=== PATIENT | female | born 1970 | race Caucasian/White ===

== ENCOUNTER 2023-11-13 08:04 | Outpatient (OUT) | payer BC, SELFPAY ==
--- NOTE | 2023-11-13 08:06 | MM_ITS ---
Patient Name: LEONARD GONZALES MR#: [id number] : 1970 Exam Date: 11/13/2023 Ordering Doctor: DR Genie Lopez M.D. RADIOLOGY REPORT PROCEDURE: MM TOMOSYNTHESIS SCREENING BI COMPARISON: MG MAMM SCREEN 3D BISMARK CAD, 01/04/2021. INDICATIONS: Screening Calculator Name NCI Breast Cancer Risk Assessment Tool 5 Year Breast Cancer Risk Not Reported. Lifetime Breast Cancer Risk Not Reported. Personal Breast Cancer No Personal Ovarian Cancer No Treatments None Family Cancers None LOCATION: [facility] BREAST COMPOSITION: Almost entirely fatty. FINDINGS: DIAGNOSTIC CATEGORY 2--BENIGN FINDING. NO CHANGE FROM COMPARISON. Scattered benign-appearing nodules are present. Scattered benign-appearing calcifications are present. Scattered benign-appearing lymph nodes are present. RIGHT BREAST: No significant suspicious finding. LEFT BREAST: No significant suspicious finding. RECOMMENDATIONS: ROUTINE MAMMOGRAM AND CLINICAL EVALUATION IN 12 MONTHS. PLEASE NOTE: A NORMAL MAMMOGRAM DOES NOT EXCLUDE THE POSSIBILITY OF BREAST CANCER. A CLINICALLY SUSPICIOUS PALPABLE LUMP SHOULD BE BIOPSIED. Dictated by: Ike Mendez MD on 11/13/2023 at 09:14 Approved by: Ike Mendez MD on 11/13/2023 at 09:16
== END 2023-11-13 08:05 | disposition home or self-care (01) ==
LOC: MAMMO 08:04
PROVIDERS: PCP Family Medicine; Visit Provider Family Medicine
DX: Z12.31 Encounter for screening mammogram for malignant neoplasm of breast (principal)
CPT/HCPCS: 77063; 77067

== ENCOUNTER 2024-12-23 09:56 | Outpatient (OUT) | payer BC, SELFPAY ==
--- NOTE | 2024-12-23 09:59 | MM_ITS ---
Patient Name: LEONARD GONZALES MR#: [id number] : 1970 Exam Date: 12/23/2024 Ordering Doctor: DR. ISABELLE MART D.O. RADIOLOGY REPORT PROCEDURE: MM TOMOSYNTHESIS SCREENING BI COMPARISON: MM TOMOSYNTHESIS SCREENING BI, 11/13/2023. MG MAMM SCREEN 3D BISMARK CAD, 01/04/2021. INDICATIONS: Screening Calculator Name NCI Breast Cancer Risk Assessment Tool 5 Year Breast Cancer Risk Not Reported. Lifetime Breast Cancer Risk Not Reported. Personal Breast Cancer No Personal Ovarian Cancer No Treatments None Family Cancers None LOCATION: [facility] BREAST COMPOSITION: The breasts are almost entirely fatty. FINDINGS: RIGHT BREAST: No significant suspicious finding. LEFT BREAST: No significant suspicious finding. DIAGNOSTIC CATEGORY 1--NEGATIVE. RECOMMENDATIONS: ROUTINE MAMMOGRAM AND CLINICAL EVALUATION IN 12 MONTHS. PLEASE NOTE: A NORMAL MAMMOGRAM DOES NOT EXCLUDE THE POSSIBILITY OF BREAST CANCER. A CLINICALLY SUSPICIOUS PALPABLE LUMP SHOULD BE BIOPSIED. Dictated by: Kvng Whitfield DO on 12/23/2024 at 12:33 Approved by: Kvng Whitfield DO on 12/23/2024 at 12:37
--- OUTSIDE RECORDS SUMMARY | 2024-12-23 10:03 | XMS_ITS | CCD ---
Author Organization [facility] Care Team Providers Care Discovery Manager Name Role Phone DR GENIE MA Admitting Unavailable DR GENIE MA Consulting Unavailable DR GENIE MA Attending Unavailable DEMETRICE MCKEON Admitting Unavailable DEMETRICE MCKEON Consulting Unavailable DEMETRICE MCKEON Attending Unavailable Arron Valdivia Unavailable Jennifer Younger Unavailable Genie Ma Unavailable GENIE MA Primary Care Physician Genie Ma MD Primary Care Provider [phone] ELISABET LARSON Attending Unavailable Elisabet Larson Attending Unavailable Elisabet Larson Admitting Unavailable GENIE MA Attending Unavailable GENIE MA Admitting Unavailable Elisabet Larson Attending Unavailable Elisabet Larson Admitting Unavailable Allergies Allergy Classification Reported Allergen(s) Allergy Type Date of Onset Reaction(s) Facility (1 source) patient allergy list reviewed by nurse or physicia Propensity to adverse reactions 4 Comment:Done Genterpret Other (1 source) Allergies Reconciled Propensity to adverse reactions Unknown [facility] Other (3 sources) Amoxicillin Drug Allergy 5 GI intolerance [facility] Medications Current Medications Medication Drug Class(es) Dates Sig (Normalized) Sig (Original) cefdinir 300 mg oral capsule (2 sources) Cephalosporin Antibacterial Start: 02-05-2023 Cefdinir 300 MG as directed Orally bid for 7 days January, Active phentermine hydrochloride 37.5 mg oral tablet (20 sources) Sympathomimetic Amine Anorectic Start: 12-20-2024 take 1 tablet by mouth once daily phentermine (Adipex-P) 37.5 MG tablet Take 37.5 mg by mouth Daily 09/02/2024 Active Start: 11-05-2023 End: 08-02-2024 take 1 tablet by mouth once daily Phentermine 37.5 mg tablet Active 37.5 MG PO Daily August 02, 2024 8:50am FreeTextSi tablet Orally Once a day; Note: Source Status: Taking; Refills: 0; Qty: 30 Tablet; Provider: Jessica Lamb Start: 10-20-2023 take 1 tablet by tessy th every twenty-four hours Adipex-P 37.5 MG 1 tablet Orally Once a day for 30 days Oct, Active Start: 12-26-2022 take 1 tablet by tessy th every twenty-four hours Adipex-P 37.5 MG 1 tablet Orally Once a day for 30 days Dec, Active Start: 11-24-2022 take 1 tablet by tessy th every twenty-four hours Adipex-P 37.5 MG 1 tablet Orally Once a day for 30 days Nov, Active Start: 10-20-2022 take 1 tablet by tessy th every twenty-four hours Adipex-P 37.5 MG 1 tablet Orally Once a day for 30 days Oct, Active Completed/Discontinued Medications Medication Drug Class(es) Dates Sig (Normalized) Sig (Original) amoxicillin 875 mg / clavulanate 125 mg oral tablet (9 sources) Penicillin-class Antibacterial Start: 4 End: take 1 tablet by mouth twice daily Amoxicillin-Pot Clavulanate 875-125 mg tablet Discontinued 1 TAB PO Twice daily November 26, 2023 11:00pm December 18, 2023 7:39am fluconazole 150 mg oral tablet (9 sources) Azole Antifungal Start: 4 End: 4 Fluconazole 150 mg tablet Discontinued 150 MG PO Daily 2 November 26, 2023 11:00pm December 18, 2023 8:01am Take first tablet at the onset of symptoms of a yeast infection, take the second tablet 3 days later. methylPREDNISolone 4 mg oral tablet (9 sources) Corticosteroid Start: 4 End: take 1 tablet by mouth once Methylprednisolone (Medrol (Cedrick)) 4 mg tablets,dose pack Discontinued 0 PO per package directions November 26, 2023 11:00pm December 18, 2023 8:01am PO PER PKG DIR for 6 days Problems Active Problems Problem Classification Problem Date Documented Date Episodic/Chronic Contraceptive and procreative management (2 sources) Intrauterine contraceptive device in situ; Translations: [Encounter for routine checking of intrauterine contraceptive device] 09-21-2024 Episodic Genitourinary symptoms and ill-defined conditions (9 sources) Urinary tract infectious disease; Translations: [Unspecified symptoms and signs involving the genitourinary system] Episodic Immunizations and screening for infectious disease (11 sources) Encounter for immunization; Translations: [Contact with and (suspected) exposure to other viral communicable diseases] Onset: 01-28-2021 Resolved: 10-03-2021 Episodic Inflammation; infection of eye (except that caused by tuberculosis or sexually transmitteddisease) (1 source) Conjunctivitis; Translations: [Unspecified conjunctivitis] Episodic Malaise and fatigue (19 sources) Other fatigue; Translations: [Fatigue] Onset: 01-20-2022 Resolved: 01-20-2022 Episodic Menopausal disorders (2 sources) Vaginal dryness; Translations: [Menopausal and female climacteric states] 09-21-2024 Chronic Mycoses (10 sources) Onychomycosis due to dermatophyte ; Translations: [Tinea unguium] Onset: 02-11-2019 Episodic Other circulatory disease (10 sources) Elevated blood-pressure reading without diagnosis of hypertension; Translations: [Elevated blood-pressure reading, without diagnosis of hypertension] 11-05-2023 Episodic Other infections; including parasitic (4 sources) Personal history of other infectious and parasitic diseases; Translations: [Personal history of other infectious and parasitic diseases] 11-27-2023 Episodic Other nervous system disorders (8 sources) Sensory disorder of smell and/or taste; Translations: [Parageusia] Episodic Other nervous system disorders (1 source) Taste sense altered; Translations: [Parageusia] Episodic Other nervous system disorders (9 sources) Loss of taste; Translations: [Parageusia] 11-05-2023 Episodic Other non-traumatic joint disorders (2 sources) Pain in left knee Episodic Other nutritional; endocrine; and metabolic disorders (12 sources) Body mass index 40+ - severely obese; Translations: [Body mass index (BMI) 45.0-49.9, adult] Onset: 05-14-2016 Chronic Other nutritional; endocrine; and metabolic disorders (20 sources) Severe obesity; Translations: [Morbid (severe) obesity due to excess calories] 11-16-2023 Chronic Other nutritional; endocrine; and metabolic disorders (17 sources) Morbid (severe) obesity due to excess calories; Translations: [Morbid obesity] Chronic Other nutritional; endocrine; and metabolic disorders (4 sources) Body mass index (BMI) 45.0-49.9, adult Chronic Other nutritional; endocrine; and metabolic disorders (1 source) Obesity; Translations: [Obesity, unspecified] Onset: 05-13-2013 Chronic Other nutritional; endocrine; and metabolic disorders (4 sources) Drug-induced obesity; Translations: [Drug-induced obesity] 03-25-2024 Chronic Other nutritional; endocrine; and metabolic disorders (2 sources) Morbid obesity; Translations: [Morbid (severe) obesity due to excess calories] 09-21-2024 Chronic Other screening for suspected conditions (not mental disorders or infectious disease) (9 sources) Encounter for screening mammogram for malignant neoplasm of breast; Translations: [Cancer cervix screening status] Episodic Other upper respiratory infections (5 sources) Chronic sinusitis; Translations: [Chronic sinusitis, unspecified] 11-27-2023 Chronic Other upper respiratory infections (16 sources) Acute pharyngitis, unspecified; Translations: [Pharyngitis] Onset: 09-11-2016 Resolved: 01-20-2022 Episodic Residual codes; unclassified (2 sources) Reduced libido; Translations: [Decreased libido] 09-21-2024 Episodic Residual codes; unclassified (2 sources) Family history of malignant neoplasm of breast in first degree relative; Translations: [Family history of malignant neoplasm of breast] 09-21-2024 Episodic Spondylosis; intervertebral disc disorders; other back problems (1 source) Lumbar radiculopathy; Translations: [Radiculopathy, lumbar region] Episodic Past or Other Problems Problem Classification Problem Date Documented Da te Episodic/Chronic Administrative/social admission (1 source) Repeated prescription; Translations: [Encounter for issue of repeat prescription] Onset: 05-14-2016 Episodic Other connective tissue disease (10 sources) Plantar fascial fibromatosis; Translations: [Plantar fascial fibromatosis] Onset: 01-09-2015 11-05-2023 Episodic Pleurisy; pneumothorax; pulmonary collapse (10 sources) Pleurisy; Translations: [Pleurisy] Onset: 12-14-2018 11-05-2023 Episodic Viral infection (1 source) COVID-19 Onset: 10-03-2021 Resolved: 10-03-2021 Results Test Name Value Interpretation Reference Range Facility Cortisolon 09-27-2024 Cortisol [Mass/Vol] 6.6 microgram/dL Invalid Interpretation Code 6.2-19.4 [facility] Comment on above: Result Comment: Plea se Note: The reference interval and flagging for this test is for an AM collection. If this is a PM collection please use: Cortisol PM: 2.3-11.9 Performed at: [address] [id number] PhD Song Thomson Performed By: #### 2 [id number] #### [facility] [address] [place] [address] DHEASon 09-27-2024 DHEA-S [Mass/Vol] 84.9 microgram/dL Invalid Interpretation Code 41.2-243.7 [facility] Comment on above: Result Comment: Perf ormed at: [address] [id number] PhD Song Thomson Performed By: #### 1 [id number] #### [facility] [address] [place] [address] Estradiolon 09-27-2024 E2 [Mass/Vol] 5.2 pg/mL Invalid Interpretation Code [facility] Comment on above: Result Comment: Adul t Female Range Follicular phase 12.5 - 166.0 Ovulation phase 85.8 - 498.0 Luteal phase 43.8 - 211.0 Postmenopausal <6.0 - 54.7 1st trimester 215.0 - >4300.0 Marichuy ECLIA methodology Performed at: [address] [id number] PhD Song Thomson Performed By: #### 2 [id number] #### [facility] [address] [place] [address] Estrone Lvlon 09-27-2024 E1 [Mass/Vol] 7 pg/mL Invalid Interpretation Code [facility] Comment on above: Result Comment: Rang e Adult (Premenopausal) 27 - 231 Menstrual Cycle (1-10 days) 19 - 149 Menstrual Cycle (11-20 days) 32 - 176 Menstrual Cycle (21-30 days) 37 - 200 Adult (Postmenopausal) 0 - 125 Performed at: [address] [id number] MD Fracisco Almaguer Performed By: #### 1 [id number] #### [facility] [address] [place] [address] FSHon 09-27-2024 Follitropin Qn 104.0 m[IU]/mL Invalid Interpretation Code [facility] Comment on above: Result Comment: Adul t Female Range Follicular phase 3.5 - 12.5 Ovulation phase 4.7 - 21.5 Luteal phase 1.7 - 7.7 Postmenopausal 25.8 - 134.8 Performed at: [address] [id number] PhD Song Thomson Performed By: #### 2 [id number] #### [facility] [address] [place] [address] Testosterone F&Ton 5 Testosterone [Mass/Vol] 17 ng/dL Invalid Interpretation Code 4-50 [facility] Comment on above: Performed By: #### 1 [id number] #### [facility] [address] [place] [address] Testosterone Free [Mass/Vol] 0.5 pg/mL Invalid Interpretation Code 0.0-4.2 [facility] Comment on above: Result Comment: Perf ormed at: [address] [id number] PhD Song Thomson Performed at: [address] [id number] MD Fracisco Almaguer Performed By: #### 1 [id number] #### [facility] [address] [place] [address] Vit D 1,25on 09-27-2024 1,25-dihydroxyvitamin D [Mass/Vol] 34.9 pg/mL Invalid Interpretation Code 24.8-81.5 [facility] Comment on above: Result Comment: Perf ormed at: [facility] [address] [id number] MD Fracisco Almaguer Performed By: #### 1 [id number] #### [facility] [address] [place] [address] THINPREP TIS PAP AND HPV mRN A E6/E7 WITH REFLEX TO HPV 16,18/45on 09-23-2024 CLINICAL INFORMATION: Normal [facility] Comment on above: Result Comment: None given Performed By: #### 9 1414 #### [facility] [place] [address] Clinical Practitioner: Vipin Moreira MD COMMENT Normal [facility] Comment on above: Result Comment: EXPL ANATORY NOTE: The Pap is a screening test for cervical cancer. It is not a diagnostic test and is subject to false negative and false positive results. It is most reliable when a satisfactory sample, regularly obtained, is submitted with relevant clinical findings and history, and when the Pap result is evaluated along with historic and current clinical information. Performed By: #### 9 1414 #### [facility] [place] [address] Clinical Practitioner: Vipin Moreira MD COMMENT: Normal [facility] Comment on above: Result Comment: This Pap test has been evaluated with computer assisted technology. Performed By: #### 9 1414 #### [facility] [place] [address] Clinical Practitioner: Vipin Moreira MD DOCUMENT REVIEW SPECIALIST: Normal [facility] Comment on above: Result Comment: PEH, CT(ASCP) CT screening location: [place] [address]. Performed By: #### 9 1414 #### [facility] [address] [place] [address] Clinical Practitioner: Vipin Moreira MD HPV mRNA E6/E7 Not detected Normal Not Detected [facility] Comment on above: Result Comment: Meth odology: Transformation Coach-Mediated Amplification This assay detects E6/E7 viral messenger RNA (mRNA) from 14 high-risk HPV types (16,18,31,33,35,39,45,51,52,56,58,59,66,68). Cervical sources are required for HPV testing. If a vaginal source from a patient who has had a total hysterectomy with removal of cervix was submitted, please contact the testing laboratory for alternative testing options. For additional information, please refer to http://education.Univa/faq/QYG077b5 (This link if provided for information/ educational purposes only.) Performed By: #### 9 1414 #### [facility] [address], [address] [place] [address] Clinical Practitioner: Vipin Moreira MD INFECTION: Normal [facility] Comment on above: Result Comment: Bact eria morphologically consistent with Actinomyces spp. Performed By: #### 9 1414 #### [facility] of [address], [address] [place] [address] Clinical Practitioner: Vipin Moreira MD INTERPRETATION/RESULT: Normal [facility] Comment on above: Result Comment: Cyto logy Results: Negative for intraepithelial lesion or malignancy. Performed By: #### 9 1414 #### [facility] [address], [address] [place] [address] Clinical Practitioner: Vipin Moreira MD LMP: Normal [facility] Comment on above: Result Comment: None given Performed By: #### 9 1414 #### [facility] [address], [address] [place] [address] Clinical Practitioner: Vipin Moreira MD PREV. BX: Normal [facility] Comment on above: Result Comment: None given Performed By: #### 9 1414 #### [facility] [address], [address] [place] [address] Clinical Practitioner: Vipin Moreira MD PREV. PAP: Normal [facility] Comment on above: Result Comment: None given Performed By: #### 9 1414 #### [facility] of [address], [address] [place] [address] Clinical Practitioner: Vipin Moreira MD REVIEW DOCUMENT REVIEW SPECIALIST: Normal [facility] Comment on above: Result Comment: BH, CT(ASCP) CT screening location: [place] [address]. Performed By: #### 9 1414 #### [facility] of [address], [address] [place] [address] Clinical Practitioner: Vipin Moreira MD SOURCE: Normal [facility] Comment on above: Result Comment: None given Performed By: #### 9 1414 #### [facility] of [address], [address] [place] [address] Clinical Practitioner: Vipin Moreira MD STATEMENT OF ADEQUACY: Normal [facility] Comment on above: Result Comment: Sati sfactory for evaluation. Endocervical/transformation zone component present. Performed By: #### 9 1414 #### [facility] of [address], [address] [place] [address] Clinical Practitioner: Vipin Moreira MD Lab Miscellaneous-LCon 09-22 Lab Miscellaneous COMMENT Invalid Interpretation Code [facility] Comment on above: Result Comment: Test Ordered: [id number] Sex Horm Binding Glob, Serum Sex Horm Binding Glob, Serum 84.5 nmol/L CB Reference Range: 17.3-125.0 Performed at: CB [facility] [address] [id number] PhD Song Thomson Performed By: #### 1 [id number] #### [facility] [address] [place] [address] CHEMISTRYOrdered By: SYSTEM SYSTEM on 09-21-2024 Progesterone Lvl 0.31 ng/mL Invalid Interpretation Code [facility] Comment on above: Result Comment: 'F N ON FOLLICULAR = 0.10 - 0.60' 'LUTEAL = 3.00 - 17.5' 'MIDLUTEAL = 3.30 - 18.6' 'POST-MENOPAUSE = 0.10 - 0.40' '-FIRST TRIMESTER = 8.30 - 66.5' 'SECOND TRIMESTER = 18.9 - 66.1' 'THIRD TRIMESTER = 35.8 - 312.4' 'MALES = 0.14 - 2.06' TSH Qn 3.66 m[IU]/L Normal 0.34 - 5.60 mcIU/mL Remisol Chem [facility] PROGESTERONEon 09-21-19 Original Ordering Provider: DO Elisabet Larson [facility] TSH WITH T4FR REFLEXon 09-21-2024 [facility] THYROTROPIN:ACNC:PT:SER /PLAS:QN: 3.66 [facility] Original Ordering Provider: DO Elisabet [facility] Lab Miscellaneous-LCon 09-21 Test Code [id number] Invalid Interpretation Code [facility] Comment on above: Performed By: #### 1 [id number] #### [facility] [address] [place] [address] Test Name SHBG Invalid Interpretation Code [facility] Comment on above: Performed By: #### 1 [id number] #### [facility] [address] [place] [id number] Progesteroneon 09-21-2024 PROGESTERONE LVL 0.31 ng/mL Invalid Interpretation Code [facility] Comment on above: 'F NON FOLLI CULAR = 0.10 - 0.60' 'LUTEAL = 3.00 - 17.5' 'MIDLUTEAL = 3.30 - 18.6' 'POST-MENOPAUSE = 0.10 - 0.40' '-FIRST TRIMESTER = 8.30 - 66.5' 'SECOND TRIMESTER = 18.9 - 66.1' 'THIRD TRIMESTER = 35.8 - 312.4' 'MALES = 0.14 - 2.06' Result Comment: 'F N ON FOLLICULAR = 0.10 - 0.60' 'LUTEAL = 3.00 - 17.5' 'MIDLUTEAL = 3.30 - 18.6' 'POST-MENOPAUSE = 0.10 - 0.40' '-FIRST TRIMESTER = 8.30 - 66.5' 'SECOND TRIMESTER = 18.9 - 66.1' 'THIRD TRIMESTER = 35.8 - 312.4' 'MALES = 0.14 - 2.06' Performed By: #### 2 [id number] #### [facility] [address] [place] [address] Reference Laboratory Testing Ordered By: Kelsey Anguiano on 09-21-2024 Sodium [Moles/Vol] 50630 mmol/L Invalid Interpretation Code [facility] Test Name SHBG Invalid Interpretation Code [facility] TSH With T4fr Reflexon 09-21 TSH Qn 3.66 m[IU]/L Normal 0.34-5.60 [facility] Comment on above: Performed By: #### 1 [id number] #### [facility] [address] [place] [address] Automated basophil countOrde red By: SYSTEM SYSTEM on 12-21-2023 Basophils/100 WBC (Bld) 0.7 % 0.0-2.0 R emisol Heme Automated blood monocyte cou ntOrdered By: SYSTEM SYSTEM on 12-21-2023 Monocytes/100 WBC (Bld) 10.5 % 4.0-14.0 R emisol Heme Basophils/100 WBC Auto (Bld) on 12-21-2023 Basophils/100 WBC (Bld) 0.0 E9/L 0.0-0.2 [facility] CBC w/ Auto Diffon Basophils/100 WBC (Bld) 0.7 % Normal 0.0-2.0 F [facility] Comment on above: Performed By: #### 7 [id number], [id number], [id number], 8610020, [id number], [id number] #### [facility] [address] [place] [address] Basophils/Leukocytes Auto (Bld) [Pure # fraction] 0.0 E9/L Normal 0.0-0.2 [facility] Comment on above: Performed By: #### 7 [id number], [id number], 0385672, 2750598, [id number], [id number] #### [facility] [address] [place] [address] Eosinophils (Bld) [#/Vol] 0.1 E9/L Normal 0.0-0.5 [facility] Comment on above: Performed By: #### 7 [id number], 4854732, 3897942, 3666687, [id number], [id number] #### [facility] [address] [place] [address] Eosinophils/100 WBC (Bld) 3.0 % Normal 0.0-8.0 [facility] Comment on above: Performed By: #### 7 [id number], 7826801, 3130443, 7387066, 11051282, 7516866 #### [facility] [address] [place] [address] Erythrocyte distribution width (RBC) [Ratio] 13.4 % Normal 10.9-14.2 [facility] Comment on above: Performed By: #### 7 [id number], 2477415, 6288123, 7651557, 72929733, 8934312 #### [facility] [address] [place] [address] Hematocrit (Bld) [Volume fraction] 38.9 % Normal 34.0-46.0 [facility] Comment on above: Performed By: #### 7 [id number], 6525345, 8309372, 4196982, 25302277, 8934257 #### [facility] [address] [place] [address] Hemoglobin (Bld) [Mass/Vol] 12.8 g/dL Normal 12.0-16.0 [facility] Comment on above: Performed By: #### 7 [id number], 0430405, 4249926, 4228733, 34126513, 9605171 #### [facility] [address] [place] [address] Lymphocytes (Bld) [#/Vol] 1.5 E9/L Normal 1.0-4.0 [facility] Comment on above: Performed By: #### 7 [id number], 4402398, 2364578, 6290764, 85570394, 8267253 #### [facility] [address] [place] [address] Lymphocytes/100 WBC (Bld) 31.4 % Normal 14.0-50.0 [facility] Comment on above: Performed By: #### 7 [id number], 4160867, 7667666, 5291480, 57068294, 8228990 #### [facility] [address] [place] [address] 27733 MCH (RBC) [Entitic mass] 29.6 pg Normal 27.0-34.0 [facility] Comment on above: Performed By: #### 7 [id number], 4393302, 1414032, 4759678, 75242855, 0287337 #### [facility] [address] [place] [address] MCHC (RBC) [Mass/Vol] 32.9 g/dL Normal 31.4-36.0 [facility] Comment on above: Performed By: #### 7 [id number], 6505550, 5517033, 7384017, 78239424, 2391437 #### [facility] [address] [place] [address]98 MCV (RBC) [Entitic vol] 89.9 fL Normal 80.0-100.0 F [facility] Comment on above: Performed By: #### 7 [id number], 8976280, 2442643, 3467417, 21284791, 1008368 #### [facility] [address] [place] [address] Monocytes (Bld) [#/Vol] 0.5 E9/L Normal 0.2-1.0 F [facility] Comment on above: Performed By: #### 7 [id number], 2797275, 7136065, 1387130, 10439917, 8312587 #### [facility] [address] [place] [address] Neutrophils (Bld) [#/Vol] 2.7 E9/L Normal 2.0-7.5 [facility] Comment on above: Performed By: #### 7 [id number], 7729477, 7343135, 4032971, 67861235, 7477458 #### [facility] [address] [place] [address] Neutrophils/100 WBC (Bld) 54.4 % Normal 36.0-75.0 [facility] Comment on above: Performed By: #### 7 [id number], 1639844, 5391797, 2632182, 51641831, 2709026 #### [facility] [address] [place] [address] Platelet 256.0 E9/L Normal 150.0-500.0 [facility] Comment on above: Performed By: #### 7 [id number], 9268572, 8545437, 5465456, 31877031, 4717858 #### [facility] [address] [place] [address] Platelet mean volume (Bld) [Entitic vol] 8.1 fL Normal 6.4-10.8 [facility] Comment on above: Performed By: #### 7 [id number], [id number], [id number], 8580139, [id number], [id number] #### [facility] [address] [id number] RBC (Bld) [#/Vol] 4.3 E12/L Normal 4.3-5.9 [facility] Comment on above: Performed By: #### 7 [id number], [id number], 6798511, 5804207, [id number], [id number] #### [facility] [address] [place] [address] WBC corrected for nucl RBC Auto (Bld) [#/Vol] 4.9 E9/L Normal 4.0-11.0 [facility] Comment on above: Performed By: #### 7 [id number], [id number], 3280665, 5921945, 01054316, 1732511 #### [facility] [address] [place] [address] CHEMISTRYOrdered By: SYSTEM SYSTEM on 12-21-2023 ALP [Catalytic activity/Vol] 76 [iU]/d Normal 21 - 98 Int._Unit/L [facility] Chem ALT No additional P-5'-P [Catalytic activity/Vol] 16 [iU]/d Normal 6 - 46 Int._Unit/L [facility] Chem AST [Catalytic activity/Vol] 21 [iU]/d Normal 5 - 43 Int._Unit/L [facility] Chem eGFR 88 mL/min/1.73 m2 Normal >=59mL/min /1 .73 m2 [facility] Urea nitrogen/Creatinine [Mass ratio] 14 mg/mg Normal 10 - 20 [facility] CMPon 12-21-2023 Albumin [Mass/Vol] 4.2 g/dL Normal 3.3-5.0 [facility] Comment on above: Performed By: #### 7 [id number], 1830349, 4809431, 36208266, [id number] #### [facility] [address] [place] [address] Albumin/Globulin (S) [Mass conc ratio] 1.3 Normal 1.1-2.2 [facility] Comment on above: Performed By: #### 7 [id number], [id number], 2954244, 6923477, 53102855, 7070518 #### [facility] [address] [place] [address] ALP [Catalytic activity/Vol] 76 Int._Unit/L Normal 21- [facility] Comment on above: Performed By: #### 7 [id number], [id number], 1371488, 9881784, 74861031, 7672375 #### [facility] [address] [place] [address] ALT No additional P-5'-P [Catalytic activity/Vol] 16 Int._Unit/L Normal 6-46 [facility] Comment on above: Performed By: #### 7 [id number], 8185013, 2966702, 6597837, 52330982, 0420610 #### [facility] [address] [place] [address] Anion gap [Moles/Vol] 11 mmol/L Normal 6-16 [facility] Comment on above: Performed By: #### 7 [id number], 2472369, 7123226, 4713005, 62356638, 1282251 #### [facility] [address] [place] [address] AST [Catalytic activity/Vol] 21 Int._Unit/L Normal 5-43 [facility] Comment on above: Performed By: #### 7 [id number], 3144229, 4933587, 7444522, 09879955, 9872409 #### [facility] [address] [place] [address] Bilirubin [Mass/Vol] 0.7 mg/dL Normal 0.0-1.1 [facility] Comment on above: Performed By: #### 7 [id number], 0774304, 3980780, 8338659, [id number], 7294896 #### [facility] [address] [place] [address] Calcium [Mass/Vol] 9.7 mg/dL Normal 8.9-11.1 [facility] Comment on above: Performed By: #### 7 [id number], 9690703, 0292668, 4528778, 65551208, 9018101 #### [facility] [address] [place] [address] Chloride [Moles/Vol] 102 mmol/L Normal 101-111 [facility] Comment on above: Performed By: #### 7 [id number], 6041644, 2220828, 1286368, 69573236, 3602574 #### [facility] [address] [place] [address] CO2 [Moles/Vol] 28 mmol/L Normal 21-31 [facility] Comment on above: Performed By: #### 7 [id number], 8623000, 7735644, 3480757, 02532640, 7251883 #### [facility] [address] [place] [address] Creatinine [Mass/Vol] 0.8 mg/dL Normal 0.5-1.3 [facility] Comment on above: Performed By: #### 7 [id number], 8118858, 5230220, 5102058, 92459655, 1472731 #### [facility] [address] [place] [address] Globulin (S) [Mass/Vol] 3.2 g/dL Normal 1.4-4.0 [facility] Comment on above: Performed By: #### 7 [id number], 0060255, 0855713, 7277946, 34844219, 8324016 #### [facility] [address] [place] [address] Glucose [Mass/Vol] 88 mg/dL Normal 55-199 [facility] Comment on above: Performed By: #### 7 [id number], 5548179, 5721575, 5021042, 98622426, 4827304 #### [facility] [address] [place] [address] Potassium [Moles/Vol] 4.0 mmol/L Normal 3.5-5.3 [facility] Comment on above: Performed By: #### 7 [id number], 9825230, 5757029, 4905683, 03932558, 6121316 #### [facility] [address] [place] [address] Protein [Mass/Vol] 7.4 g/dL Normal 6.0-7.8 [facility] Comment on above: Performed By: #### 7 [id number], 6531932, 2248305, 1875545, 56948715, 1455954 #### [facility] [address] [place] [address] Sodium [Moles/Vol] 137 mmol/L Normal 135-145 [facility] Comment on above: Performed By: #### 7 [id number], 7862753, 4596963, 4589511, 69961933, 5339649 #### [facility] [address] [place] [address] Urea nitrogen [Mass/Vol] 11 mg/dL Normal 5-21 [facility] Comment on above: Performed By: #### 7 [id number], 4681894, 4519423, 5030885, 90273744, 0745120 #### [facility] [address] [place] [address] Urea nitrogen/Creatinine [Mass ratio] 14 No Units Normal 10-20 [facility] Comment on above: Performed By: #### 7 [id number], 8845959, 8505412, 2221399, 07943232, 7284231 #### [facility] [address] [place] [address] Cholesterol in VLDL [Mass/vo lume] in Serum or Plasma by calculationOrdered By: SYSTEM SYSTEM on 12-21-2023 Cholesterol in VLDL [Mass/Vol] 14 mg/dL 7-40 [facility] Consent for Treatmenton Consent for Treatment [id number] Normal [facility] Eosinophils/100 leukocytes i n Blood by Manual countOrdered By: SYSTEM SYSTEM on 12-21-2023 Eosinophils/100 WBC (Bld) 3.0 % 0.0-8.0 [facility] Erythrocyte distribution wid th [Ratio] by Automated countOrdered By: SYSTEM SYSTEM on 12-21-2023 Erythrocyte distribution width (RBC) [Ratio] 13.4 % 10.9-14.2 [facility] Erythrocytes [#/volume] in B lood by Automated countOrdered By: SYSTEM SYSTEM on 12-21-2023 RBC (Bld) [#/Vol] 4.3 E12/L 4.3-5.9 [facility] Estimated glomerular filtrat ion rate (GFR) non- Americanon 12-21-2023 GFR/1.73 sq M.predicted among non-blacks MDRD (S/P/Bld) [Vol rate/Area] 88 mL/min/1.73 m2 >=59 [facility] HEMATOLOGYOrdered By: SYSTEM SYSTEM on 12-21-2023 Basophils/Leukocytes Auto (Bld) [Pure # fraction] 0.0 E9/L Normal 0.0 - 0.2 E9/L [facility] Eosinophils (Bld) [#/Vol] 0.1 E9/L Normal 0.0 - 0.5 E9/L [facility] Lymphocytes (Bld) [#/Vol] 1.5 E9/L Normal 1.0 - 4.0 E9/L [facility] Monocytes (Bld) [#/Vol] 0.5 E9/L Normal 0.2 - 1.0 E9/L [facility] Platelet 256.0 E9/L Normal 150.0 - 500.0 E9/L [facility] Hematocrit [Volume Fraction] of Blood by Automated countOrdered By: SYSTEM SYSTEM on 12-21-2023 Hematocrit (Bld) [Volume fraction] 38.9 % 34.0-46.0 [facility] Hemoglobin [Mass/volume] in BloodOrdered By: SYSTEM SYSTEM on 12-21-2023 Hemoglobin (Bld) [Mass/Vol] 12.8 g/dL 12.0-16.0 [facility] [id number] 12-21-2023 HbA1c (Bld) [Mass fraction] 5.8 % Normal <=5.9 [facility] Comment on above: Performed By: #### 7 [id number], [id number], 7591022, 6999104, 65679463, 3905210 #### [facility] [address] [place] [address] Laboratory - Chemistry and C hemistry - challengeOrdered By: SYSTEM SYSTEM on 12-21-2023 Albumin [Mass/Vol] 4.2 g/dL 3.3-5.0 [facility] Bilirubin [Mass/Vol] 0.7 mg/dL 0.0-1.1 [facility] Calcium [Mass/Vol] 9.7 mg/dL 8.9-11.1 [facility] Chloride [Moles/Vol] 102 mmol/L 101-111 [facility] Cholesterol [Mass/Vol] 193 mg/dL 120-200 Re mis[facility] Chem Cholesterol in HDL [Mass/Vol] 58 mg/dL [facility] Comment on above: Result Comment: '>= 60 LOW RISK' '<= 40 HIGH RISK' Cholesterol in LDL [Mass/Vol] 117 mg/dL <=129 [facility] CO2 [Moles/Vol] 28 mmol/L 21-31 [facility] C hem Creatinine [Mass/Vol] 0.8 mg/dL 0.5-1.3 Rem isol Chem Glucose [Mass/Vol] 88 mg/dL 55-199 [facility] Potassium [Moles/Vol] 4.0 mmol/L 3.5-5.3 Rem isol Chem Protein [Mass/Vol] 7.4 g/dL 6.0-7.8 [facility] Sodium [Moles/Vol] 137 mmol/L 135-145 [facility] Triglyceride [Mass/Vol] 72 mg/dL <=149 R em[facility] Chem TSH Qn 3.58 m[IU]/L 0.34-5.60 [facility] Urea nitrogen [Mass/Vol] 11 mg/dL 5-21 [facility] Laboratory - Hematology and Cell countsOrdered By: Fina Huertas on 12-21-2023 HbA1c (Bld) [Mass fraction] 5.8 % <=5.9 [facility] Laboratory - Hematology and Cell countsOrdered By: SYSTEM SYSTEM on 12-21-2023 Neutrophils/100 WBC (Bld) 54.4 % 36.0-75.0 [facility] Leukocytes [#/volume] correc allyn for nucleated erythrocytes in Blood by Automated counOrdered By: SYSTEM SYSTEM on 12-21-2023 WBC corrected for nucl RBC Auto (Bld) [#/Vol] 4.9 E9/L 4.0-11.0 [facility] toan Lipid Panelon 12-21-2023 Cholesterol [Mass/Vol] 193 mg/dL Normal 120-200 [facility] Comment on above: Performed By: #### 7 [id number], [id number], 4419140, 2074370, 67423331, 2499230 #### [facility] [address] [place] [address] Cholesterol in HDL [Mass/Vol] 58 mg/dL Invalid Interpretation Code [facility] Comment on above: Result Comment: '>= 60 LOW RISK' '<= 40 HIGH RISK' Performed By: #### 7 [id number], 2634134, 0267292, 1178958, 07100058, 7303081 #### [facility] [address] [place] [address] Cholesterol in LDL [Mass/Vol] 117 mg/dL Normal <=129 [facility] Comment on above: Performed By: #### 7 [id number], 3165290, 6231023, 2562793, 94292631, 9572362 #### [facility] [address] [place] [address] Cholesterol in VLDL [Mass/Vol] 14 mg/dL Normal 7-40 [facility] Comment on above: Performed By: #### 7 [id number], 4283262, 1722573, 3580337, 96330242, 6312319 #### [facility] [address] [place] [address] Triglyceride [Mass/Vol] 72 mg/dL Normal <=149 [facility] Comment on above: Performed By: #### 7 [id number], 7147979, 7126577, 7475241, 69312164, 4606494 #### [facility] [address] [place] [address] Lymphocytes Auto (Bld) [#/Vo l]on 12-21-2023 Lymphocytes # (Auto) 1.5 E9/L 1.0-4.0 [facility] Lymphocytes [#/volume] in Bl ood by Automated countOrdered By: SYSTEM SYSTEM on 12-21-2023 Lymphocytes/100 WBC (Bld) 31.4 % 14.0-50.0 [facility] MCH [Entitic mass] by Automa allyn countOrdered By: SYSTEM SYSTEM on 12-21-2023 MCH (RBC) [Entitic mass] 29.6 pg 27.0-34.0 [facility] MCHC [Mass/volume] by Automa allyn countOrdered By: SYSTEM SYSTEM on 12-21-2023 MCHC (RBC) [Mass/Vol] 32.9 g/dL 31.4-36.0 Rem isol Heme MCV [Entitic volume] by Auto mated countOrdered By: SYSTEM SYSTEM on 12-21-2023 MCV (RBC) [Entitic vol] 89.9 fL 80.0-100.0 R em[facility] Heme Neutrophils [#/volume] in Bl ood by Automated countOrdered By: SYSTEM SYSTEM on 12-21-2023 Neutrophils (Bld) [#/Vol] 2.7 E9/L 2.0-7.5 [facility] No Panel Informationon 12-20 Alanine Aminotransferase (ALT/SGPT) 16 Int._Unit/L 6-46 [facility] Alkaline Phosphatase 76 Int._Unit/L 21-98 [facility] Aspartate Amino Transf (AST/SGOT) 21 Int._Unit/L 5-43 [facility] BUN/Creatinine Ratio 14 No Units 10-20 [facility] Eosinophils # (Auto) 0.1 E9/L 0.0-0.5 [facility] Physician Orderon 12-21-2023 Physician Order [id number]#[id number] Normal [facility] Platelet mean volume [Entiti c volume] in Blood by Automated countOrdered By: SYSTEM SYSTEM on 12-21-2023 Platelet mean volume (Bld) [Entitic vol] 8.1 fL 6.4-10.8 [facility] Platelets Auto (Bld) [#/Vol] on 12-21-2023 Platelets (Bld) [#/Vol] 256.0 E9/L 150.0-500.0 [facility] Serum globulin measurement b y calculation (mass/volume)Ordered By: SYSTEM SYSTEM on 12-21-2023 Globulin (S) [Mass/Vol] 3.2 g/dL 1.4-4.0 R em[facility] Chem Serum or plasma albumin/glob ulin mass ratioOrdered By: SYSTEM SYSTEM on 12-21-2023 Albumin/Globulin [Mass ratio] 1.3 {ratio} 1.1-2.2 [facility] Serum or plasma anion gap de terminationOrdered By: SYSTEM SYSTEM on 12-21-2023 Anion gap [Moles/Vol] 11 mmol/L 6-16 Rem isol Chem TSHon 12-21-2023 TSH Qn 3.58 m[IU]/L Normal 0.34-5.60 [facility] Comment on above: Performed By: #### 7 [id number], 3902562, 9058238, 3868154, 19137859, 3221540 #### [facility] [address] [place] [address] eGFRon 12-21-2023 eGFR 88 mL/min/1.73 m2 Normal >=59 [facility] Comment on above: Order Comment: Order added by Discern Expert. Performed By: #### 7 [id number], 8400851, 2066659, 0507349, [id number], 1148077 #### [facility] [address] [place] [address] Influenza virus B Ag [Presen ce] in Upper respiratory specimen by Rapid immunoassayon 11-27-2023 FLUBV Ag IA.rapid Ql (Nph) Negative [facility] No Panel Informationon 11-26 Influenza Type A (Rapid) Negative [facility] POC SARS CoV-2 Antigen Negative [facility] SANCHO-GALVEZ VIRUS (EBV) AB PROFILEon 01-21-2022 EBV Ab VCA, IgG >600.0 Critically high 0.0-17.9 [facility] Comment on above: Result Comment: Nega tive <18.0 Equivocal 18.0 - 21.9 Positive >21.9 Performed By: #### E BVPROF #### [facility] [address] [place] [address] Dr. Abena Ortiz EBV Ab VCA, IgM <36.0 Normal 0.0-35.9 [facility] Comment on above: Result Comment: Nega tive <36.0 Equivocal 36.0 - 43.9 Positive >43.9 Performed By: #### E BVPROF #### [facility] [address] [address] [address] Abena Ortiz EBV Nuclear Antigen Ab, IgG 341.0 U/mL Critically high 0.0-17.9 [facility] Comment on above: Result Comment: Nega tive <18.0 Equivocal 18.0 - 21.9 Positive >21.9 Performed By: #### E BVPROF #### [facility] [address] [place] [address] Dr. Abena Ortiz Interpretation: Comment Normal [facility] Comment on above: Result Comment: EBV Interpretation Chart [place]: Antibody Present + Antibody Absent - Interpretation VCA-IgM VCA-IgG EBNA-IgG . No previous infection/ - - - Susceptible Primary infection (new + + - or recent) Past Infection +or- + + See comment below* + - - *Results indicate infection with EBV at some time however cannot predict the timing of the infection since antibodies to EBNA usually develop after primary infection or, alternatively, approximately 5-10% of patients with EBV never develop antibodies to EBNA. Performed By: #### E BVPROF #### [facility] [address] [place] [address] Dr. Abena Ortiz COVID Quick Testingon 2021 Result Negative [employer] Other MONOon 01-20-2022 Monocytes (Bld) [#/Vol] Negative Normal NEGATIVE [facility] Comment on above: Performed By: #### M WESTON #### [facility] [address] [place] [address] Dr. Abena Ortiz Quick Fluon 01-20-2022 FLUAV Ab CF (S) [Titer] Negative N [employer] Other FLUBV Ab CF (S) [Titer] Negative N [employer] Other Quick Strepon 01-20-2022 S. pyogenes Org specific cx Ql (Throat) Negative [employer] Other Quick Strep [employer] Other Throat Cultureon 01-20-2022 Throat culture Reason for Exam Sore throat Throat Respiratory Results Heavy Normal Respiratory Alix 2 Days PERFORMED BY: [place] [address] PATHOLOGIST [employer]THOPED[employer]TER IVETTE JONES M.D. Normal [facility] Comment on above: Performed By: #### C UT #### [address] COVID Quick Testingon 2021 Result Positive [employer] Other Vital Signs Date Time Vital Sign Value Performing Clinician Shashank pineda 09-21-2024 10:41-0500 Body mass index (BMI) [Ratio] 41.93 kg/m2 Elisabet Nataprawira DO Work Phone: [facility] 09-21-2024 10:41-0500 Body weight 114.31 kg Elisabet Nataprawira DO Work Phone: [facility] 09-21-2024 10:41-0500 Diastolic blood pressure 84 mm[Hg] Elisabet Nataprawira DO Work Phone: [facility] 09-21-2024 10:41-0500 Systolic blood pressure 142 mm[Hg] Elisabet Nataprawira DO Work Phone: [facility] 08-02-2024 08:31-0500 Body height 160.[address] [facility] 08-02-2024 08:31-0500 Body mass index (BMI) [Ratio] 43.5 kg/m2 [facility] 08-02-2024 08:31-0500 Body weight 111.[address] [facility] 08-02-2024 08:31-0500 Diastolic blood pressure 75 mm[Hg] [facility] 08-02-2024 08:31-0500 Heart rate 78 /min [facility] 08-02-2024 08:31-0500 Systolic blood pressure 115 mm[Hg] [facility] 07-01-2024 08:30-0400 Body height 160.[address] [facility] 07-01-2024 08:30-0400 Body mass index (BMI) [Ratio] 44.1 kg/m2 [facility] 07-01-2024 08:30-0400 Body weight 112.[address] [facility] 07-01-2024 08:30-0400 Diastolic blood pressure 78 mm[Hg] [facility] 07-01-2024 08:30-0400 Heart rate 80 /min [facility] 07-01-2024 08:30-0400 Systolic blood pressure 114 mm[Hg] [facility] 06-03-2024 08:32-0400 Body height 160.[address] [facility] 06-03-2024 08:32-0400 Body mass index (BMI) [Ratio] 44.1 kg/m2 [facility] 06-03-2024 08:32-0400 Body weight 112.[address] [facility] 06-03-2024 08:32-0400 Diastolic blood pressure 79 mm[Hg] [facility] 06-03-2024 08:32-0400 Heart rate 83 /min [facility] 06-03-2024 08:32-0400 Systolic blood pressure 126 mm[Hg] [facility] 05-03-2024 09:42-0400 Body height 160.[address] [facility] 05-03-2024 09:42-0400 Body mass index (BMI) [Ratio] 44.4 kg/m2 [facility] 05-03-2024 09:42-0400 Body weight 113.[address] [facility] 05-03-2024 09:42-0400 Diastolic blood pressure 78 mm[Hg] [facility] 05-03-2024 09:42-0400 Heart rate 76 /min [facility] 05-03-2024 09:42-0400 Systolic blood pressure 111 mm[Hg] [facility] 03-24-2024 08:37-0400 Body height 160.[address] [facility] 03-24-2024 08:37-0400 Body mass index (BMI) [Ratio] 44.8 kg/m2 [facility] 03-24-2024 08:37-0400 Body weight 114.[address] [facility] 03-24-2024 08:37-0400 Diastolic blood pressure 79 mm[Hg] [facility] 03-24-2024 08:37-0400 Heart rate 94 /min [facility] 03-24-2024 08:37-0400 Systolic blood pressure 118 mm[Hg] [facility] 02-22-2024 08:31-0400 Body height 160.[address] [facility] 02-22-2024 08:31-0400 Body mass index (BMI) [Ratio] 45.6 kg/m2 [facility] 02-22-2024 08:31-0400 Body weight 116.[address] [facility] 02-22-2024 08:31-0400 Diastolic blood pressure 82 mm[Hg] [facility] 02-22-2024 08:31-0400 Heart rate 76 /min [facility] 02-22-2024 08:31-0400 Systolic blood pressure 128 mm[Hg] [facility] 01-21-2024 08:35-0400 Body height 160.[address] [facility] 01-21-2024 08:35-0400 Body mass index (BMI) [Ratio] 46.1 kg/m2 [facility] 01-21-2024 08:35-0400 Body weight 118.[address] [facility] 01-21-2024 08:35-0400 Diastolic blood pressure 80 mm[Hg] [facility] 01-21-2024 08:35-0400 Heart rate 83 /min [facility] 01-21-2024 08:35-0400 Systolic blood pressure 115 mm[Hg] [facility] 12-18-2023 08:31-0400 Body height 160.[address] [facility] 12-18-2023 08:31-0400 Body mass index (BMI) [Ratio] 47.1 kg/m2 [facility] 12-18-2023 08:31-0400 Body weight 120.[address] [facility] 12-18-2023 08:31-0400 Diastolic blood pressure 80 mm[Hg] [facility] 12-18-2023 08:31-0400 Heart rate 92 /min [facility] 12-18-2023 08:31-0400 Systolic blood pressure 133 mm[Hg] [facility] 11-27-2023 12:29-0400 Body height 160.[address] [facility] 11-27-2023 12:29-0400 Body mass index (BMI) [Ratio] 46.2 kg/m2 [facility] 11-27-2023 12:29-0400 Body temperature 98.4 [degF] [facility] 11-27-2023 12:29-0400 Body weight 118.[address] [facility] 11-27-2023 12:29-0400 Diastolic blood pressure 80 mm[Hg] [facility] 11-27-2023 12:29-0400 Heart rate 83 /min [facility] 11-27-2023 12:29-0400 Respiratory rate 18 /min [facility] 11-27-2023 12:29-0400 SaO2% (BldA) [Mass fraction] 96 % [facility] 11-27-2023 12:29-0400 Systolic blood pressure 139 mm[Hg] [facility] 11-13-2023 09:03-0500 Body height 160.[address] [facility] 11-13-2023 09:03-0500 Body mass index (BMI) [Ratio] 47.7 kg/m2 [facility] 11-13-2023 09:03-0500 Body weight 122.[address] [facility] 11-13-2023 09:03-0500 Diastolic blood pressure 77 mm[Hg] [facility] 11-13-2023 09:03-0500 Heart rate 76 /min [facility] 11-13-2023 09:03-0500 Systolic blood pressure 117 mm[Hg] [facility] 10-20-2023 08:30-0500 Body height 160.02 cm Genie Ma Other [employer] [facility] [employer] Other 10-20-2023 08:30-0500 Body mass index (BMI) [Ratio] 49.03 kg/m2 [employer] Other [employer] [facility] [employer] Other 10-20-2023 08:30-0500 Body weight 125.56 kg [employer] Other [employer] [facility] [employer] [employer] Other 10-20-2023 08:30-0500 Diastolic blood pressure 75 mm[Hg] Genie Ma Other [employer] [facility] [employer] Other 02-06-2024 08:30-0500 Systolic blood pressure 123 mm[Hg] Genie Ma Other [employer] Other 02-05-2023 13:45-0400 Body height 160.02 cm Genie Ma Other [employer] Other 02-05-2023 13:45-0400 Body mass index (BMI) [Ratio] 45.52 kg/m2 Genie Ma Other [employer] Other 02-05-2023 13:45-0400 Body temperature 98 [degF] Genie Ma Other [employer] Other 02-05-2023 13:45-0400 Body weight 116.58 kg Genie Ma Other [employer] Other 02-05-2023 13:45-0400 Diastolic blood pressure 82 mm[Hg] Genie Ma Other [employer] Other 02-05-2023 13:45-0400 SaO2% (BldA) [Mass fraction] 98 % Genie Ma Other [employer] Other 02-05-2023 13:45-0400 Systolic blood pressure 132 mm[Hg] Genie Ma Other [employer] Other 12-26-2022 09:30-0400 Body height 160.02 cm Genie Ma Other [employer] Other 12-26-2022 09:30-0400 Body mass index (BMI) [Ratio] 46.41 kg/m2 Genie Ma Other [employer] Other 12-26-2022 09:30-0400 Body weight 118.84 kg Genie Ma Other [employer] Other 12-26-2022 09:30-0400 Diastolic blood pressure 80 mm[Hg] Genie Ma Other [employer] Other 12-26-2022 09:30-0400 SaO2% (BldA) [Mass fraction] 98 % Genie Ma Other [employer] Other 12-26-2022 09:30-0400 Systolic blood pressure 122 mm[Hg] Genie Ma Other [employer] Other 11-24-2022 09:30-0400 Body height 160.02 cm Genie Ma Other [employer] Other 11-24-2022 09:30-0400 Body mass index (BMI) [Ratio] 47.29 kg/m2 Genie Ma Other [employer] Other 11-24-2022 09:30-0400 Body weight 121.11 kg Genie Ma Other [employer] Other 11-24-2022 09:30-0400 Diastolic blood pressure 78 mm[Hg] Genie Ma Other [employer] Other 11-24-2022 09:30-0400 Systolic blood pressure 124 mm[Hg] Genie Ma Other [employer] Other 10-20-2022 09:30-0500 Body height 160.02 cm Genie Ma Other [employer] Other 10-20-2022 09:30-0500 Body mass index (BMI) [Ratio] 48.35 kg/m2 Genie Ma Other [employer] Other 10-20-2022 09:30-0500 Body weight 123.83 kg Genie Jessica Other [employer] Other 10-20-2022 09:30-0500 Diastolic blood pressure 80 mm[Hg] Genie Ma Other [employer] Other 10-20-2022 09:30-0500 SaO2% (BldA) [Mass fraction] 98 % Genie Jessica Other [employer] Other 10-20-2022 09:30-0500 Systolic blood pressure 122 mm[Hg] Genie Jessica Other [employer] Other 01-20-2022 13:05-0400 Body height 165.1 cm Jennifer Aren Other [employer] Other 01-20-2022 13:05-0400 Body mass index (BMI) [Ratio] 41.6 kg/m2 Jennifer Aren Other [employer] Other 01-20-2022 13:05-0400 Body temperature 97.9 [degF] Jennifer Aren Other [employer] Other 01-20-2022 13:05-0400 Body weight 113.4 kg Jennifer Aren Other [employer] Other 01-20-2022 13:05-0400 SaO2% (BldA) [Mass fraction] 94 % Jennifer Younger Other [employer] Other 10-03-2021 11:00-0500 Body height 165.1 cm Arron Valdivia Other [employer] Other 10-03-2021 11:00-0500 Body mass index (BMI) [Ratio] 41.6 kg/m2 Maicolscott Shea Other [employer] Other 10-03-2021 11:00-0500 Body temperature 97.1 [degF] Arron Shea Other [employer] Other 10-03-2021 11:00-0500 Body weight 113.4 kg Arron Valdivia Other [employer] Other 10-03-2021 11:00-0500 Respiratory rate 18 /min Arron Shea Other [employer] Other 10-03-2021 11:00-0500 SaO2% (BldA) [Mass fraction] 97 % Maicolscott Valdivia Other [employer] Other Encounters Encounter Date Encounter Type Care Provider Facility Start: 09-21-2024 End: 09-21-2024 Clinis[employer] Result Encounter Elisabet Larson DO Work Phone: [facility] External Department Unsolicited Start: 09-21-2024 End: 09-21-2024 Clinisync Result Encounter Elisabet Larson DO Work Phone: [facility] External Department Unsolicited Start: 09-21-2024 End: 09-21-2024 ambulatory Elisabet Larson Facility:[facility] Start: 09-21-2024 End: 09-21-2024 Patient encounter procedure Elisabet Larson [facility] Start: 09-21-2024 End: 09-21-2024 ambulatory ELISABET LARSON Not Available Start: 09-21-2024 End: 09-21-2024 Initial preventive medicine new patient 40-64yrs Elisabet Larson DO Work Phone: [facility] Comment on above: Encounter for gyneco logical examination without abnormal finding (Primary Dx); Screening for malignant neoplasm of cervix; Encounter for screening for human papillomavirus (HPV); Surveillance for control, intrauterine device; Vaginal dryness, menopausal; Low libido; Obesity, morbid (CMS/HCC); Other screening mammogram; Screening for colon cancer; Family history of breast cancer in first degree relative; Screening for thyroid disorder Start: 09-21-2024 End: 09-21-2024 Patient encounter status Elisabet Larson DO Work Phone: [facility] Start: 08-02-2024 End: 08-02-2024 ambulatory [facility] Work Phone: Start: 08-02-2024 End: 08-02-2024 Patient encounter procedure [facility] Physician [facility] Work Phone: Start: 07-01-2024 End: 07-01-2024 ambulatory [facility] Work Phone: Start: 07-01-2024 End: 07-01-2024 Patient encounter procedure [facility] Physician [facility] Work Phone: Start: 06-03-2024 End: 06-03-2024 ambulatory [facility] Work Phone: Start: 06-03-2024 End: 06-03-2024 Patient encounter procedure [facility] Physician [facility] Work Phone: Start: 05-03-2024 End: 05-03-2024 ambulatory [facility] Work Phone: Start: 05-03-2024 End: 05-03-2024 Patient encounter procedure [facility] Physician [facility] Work Phone: Start: 03-24-2024 End: 03-24-2024 ambulatory [facility] Work Phone: Start: 03-24-2024 End: 03-24-2024 Patient encounter procedure [facility] Physician [facility] Work Phone: Start: 02-22-2024 End: 02-22-2024 ambulatory [facility] Work Phone: Start: 02-22-2024 End: 02-22-2024 Patient encounter procedure [facility] Work Phone: Start: 01-21-2024 End: 01-21-2024 ambulatory [facility] Work Phone: Start: 01-21-2024 End: 01-21-2024 Patient encounter procedure [facility] Physician [facility] Work Phone: Start: 12-21-2023 Non-patient / Non-visit [facility] Work Phone: Start: 12-21-2023 End: 12-21-2023 ambulatory GENIE MA Facility:[facility] Start: 12-21-2023 End: 12-21-2023 Patient encounter procedure GENIE MA [facility] Start: 12-18-2023 End: 12-18-2023 ambulatory [facility] Work Phone: Start: 12-18-2023 End: 12-18-2023 Patient encounter procedure [facility] Physician [facility] Work Phone: Start: 11-27-2023 End: 11-27-2023 ambulatory [facility] Work Phone: Start: 11-27-2023 End: 11-27-2023 Patient encounter procedure [facility] Physician [facility] Work Phone: Start: 11-13-2023 End: 11-13-2023 Patient encounter procedure [facility] Physician [facility] Work Phone: Start: 10-20-2023 End: 10-20-2023 ambulatory Genie Ma Other [employer] Other Start: 10-20-2023 Encounter for genera l adult medical examination without abnormal findings Genie Ma [facility] Start: 10-20-2023 Periodic preventive med est patient 40-64yrs Geniejessica Ma [facility] Start: 03-27-2023 End: 03-27-2023 ambulatory Genie Ma Other [employer] Other Start: 03-27-2023 Telephone encounter Genie Ma [facility] [employer] Start: 02-05-2023 End: 02-05-2023 ambulatory Genie Ma Other [employer] Other Start: 02-05-2023 Office outpatient vi sit 15 minutes Genie Ma [facility] Start: 01-23-2023 End: 01-23-2023 ambulatory Genie Ma Other [employer] Other Start: 01-23-2023 Telephone encounter Genie Ma [facility] Start: 01-16-2023 End: 01-16-2023 Patient encounter procedure GENIE MA [facility] Start: 12-26-2022 End: 12-26-2022 ambulatory Genie Ma Other [employer] Other Start: 12-26-2022 Office outpatient vi sit 10 minutes Genie Ma [facility] Start: 11-24-2022 End: 11-24-2022 ambulatory Genie Ma Other [employer] Other Start: 11-24-2022 Office outpatient vi sit 15 minutes Genie Ma [facility] Start: 10-20-2022 End: 10-20-2022 ambulatory Genie Ma Other [employer] Other Start: 10-20-2022 Office outpatient vi sit 15 minutes Genie Ma [facility] Start: 10-20-2022 Telephone encounter Genie Ma [facility] Start: 03-03-2022 Adult health examination Lexii Ma Other [employer] Other Start: 01-20-2022 End: 01-21-[address] GENIE MA Facility:[facility] Start: 01-20-2022 Office outpatient vi sit 15 minutes Jenniferelaine Younger [facility] Start: 10-03-2021 End: 10-03-2021 ambulatory Arron Valdivia Other [employer] Other Start: 10-03-2021 Office outpatient ne w 20 minutes Arron Valdivia [facility] Start: 01-28-2021 End: 01-29-2021 ambulatory DEMETRICE LINDA Facility:[facility] Procedures Date Procedure Procedure Detail Performing Clinician Start: 09-21-2024 [facility] PROGESTERONE Elisabet Larson DO Work Phone: Start: 09-21-2024 [facility] TSH WITH T4FR REFLEX Elisabet Larson DO Work Phone: Start: 04-14-2016 Screening mammography Rafaela caro Jessica Other Screening for malign ant neoplasm of breast Genie Ma Other Plan of Treatment Date Care Activity Detail Author Start: 09-26-2025 End: 09-26-2025 Patient encounter procedure 09/26/2025 9:30 AM EST Office Visit [facility] [address] [place] [address] [address] Elisabet Larson, DO [address] [address] [facility] Start: 11-13-2024 End: 11-19-2025 DBT Breast - bilateral screening Bilateral screening mammogram with tomosynthesis Imaging Routine Other screening mammogram Expected: 11/13/2024, Expires: 11/19/2025 [facility] Work Phone: Comment on above: Expected: 11/13/2024 , Expires: 11/19/2025 Cortisol Cortisol Lab Rou esme Vaginal dryness, menopausal Low libido Ordered: 09/21/2024 [facility] Comment on above: Ordered: 09/21/2024 DHEA-sulfate DHEA-sulfate Lab Routine Vaginal dryness, menopausal Low libido Ordered: 09/21/2024 [facility] Comment on above: Ordered: 09/21/2024 Estradiol Estradiol Lab Ro utine Vaginal dryness, menopausal Low libido Ordered: 09/21/2024 [facility] Comment on above: Ordered: 09/21/2024 Estrone Estrone Lab Rout ine Vaginal dryness, menopausal Low libido Ordered: 09/21/2024 [facility] Comment on above: Ordered: 09/21/2024 Follicle stimulating hormone Follicle stimulating hormone Lab Routine Vaginal dryness, menopausal Low libido Ordered: 09/21/2024 [facility] Comment on above: Ordered: 09/21/2024 Noninvasive colorect al cancer DNA and occult blood screening [Presence] in Stool Cologuard colon cancer screening Lab Routine Screening for colon cancer Ordered: 09/21/2024 [facility] Comment on above: Ordered: 09/21/2024 Progesterone Progesterone Lab Routine Vaginal dryness, menopausal Low libido Ordered: 09/21/2024 [facility] Comment on above: Ordered: 09/21/2024 Sex hormone binding globulin Sex hormone binding globulin Lab Routine Vaginal dryness, menopausal Low libido Ordered: 09/21/2024 [facility] Comment on above: Ordered: 09/21/2024 Testosterone, free, total Testosterone, free, total Lab Routine Vaginal dryness, menopausal Low libido Ordered: 09/21/2024 [facility] Comment on above: Ordered: 09/21/2024 THINPREP TIS PAP AND HPV MRNA E6/E7 WITH REFLEX TO HPV 16,18/45 THINPREP TIS PAP AND HPV MRNA E6/E7 WITH REFLEX TO HPV 16,18/45 Pathology and Cytology Routine Screening for malignant neoplasm of cervix Encounter for screening for human papillomavirus (HPV) Ordered: 09/21/2024 [facility] Comment on above: Ordered: 09/21/2024 TSH W/REFLEX TO FT4 TSH W/REFLEX TO FT4 Lab Routine Screening for thyroid disorder Ordered: 09/21/2024 [facility] Comment on above: Ordered: 09/21/2024 Vitamin D 1,25 dihydroxy Vitamin D 1,25 dihydroxy Lab Routine Vaginal dryness, menopausal Low libido Ordered: 09/21/2024 [facility] Comment on above: Ordered: 09/21/2024 Payers Date Payer Category Payer [facility] [employer] [id number] 1970 Unknown [id number] 1971 Unknown [id number] 1971 Unknown [id number] 1971 Unknown [id number] 1971 Unknown [id number] 1959 Unknown [id number] Self-pay Self Pay [id number] Social History Date Type Detail Facility Start: 09-21-2024 Sex Assigned At F [facility] Tobacco smoking status No Smokin g Status Entered [facility] Start: 1970 Sex Assigned At Female F [facility] Tobacco smoking stat [facility] Unknown if ever smoked [facility] Work Phone: Start: 08-02-2024 Sex [facility] (finding[facility] Start: 09-21-2024 Tobacco smoking stat [facility] Never smoked tobacco [facility] Start: 09-21-2024 Tobacco use and exposure Smokeless tobacco non-user [facility] Start: 09-21-2024 Alcoholic beverage intake Current drinker of alcohol (finding) [facility] Start: 09-21-2024 History of Social function [facility] Start: 09-21-2024 Alcohol Comment [facility] Start: 1970 Sex assigned at Not on file N [facility] Clinical Notes 10-03-2021 to 09-21-2024 Elisabet Larson DO - 09/21/2024 10:30 AM EST Note Date & Type Note Facility 09-21-2024 Evaluation + Plan note Diagnostic Tests PendingEstradiol Level 09/21/24Estrone Lvl 09/21/24Testosterone F&T 09/21/24DHEAS 09/21/24Cortisol 09/21/24Dihydroxyvitamin D 1,25 Level 09/21/24FSH Level 09/21/24 [facility] 09-21-2024 History of Present illness Narrative Images from the original note were not included. Elisabet Larson DO Obstetrics and Gynecology Name: Caitie Day Date/Time of Service:09/21/2024 6:04 PM :1970 Age: 54 y.o. Subjective Caitie Day is a 54 y.o. female who is here for a routine exam. Gynecologic Exam (New patient here for a yearly. Patient reports vaginal dryness, low libido, hair thinning, and insomnia. Completed mammogram on 11/13/23, future order sent to [facility]. Patient states that she has the Paraguard IUD inserted in 2013, Would like to discuss IUD removal. Not sure if she is menopause. Last pap unknown. Never had colonoscopy. Would like the cologuard kit. Reports no periods since IUD was inserted in 2013, denies any cramping. Admits to tolerable hot flushes) Control Contraception: IUD. LMP: No LMP recorded. (Menstrual status: No Periods). Last Mammogram No results found for this or any previous visit. Current Outpatient Medications on File Prior to Visit Medication Sig Dispense Refill phentermine (Adipex-P) 37.5 MG tablet Take 37.5 mg by mouth Daily No current facility-administered medications on file prior to visit. History reviewed. No pertinent past medical history. Past Surgical History: Procedure Laterality Date SECTION, LOW TRANSVERSE CYST REMOVAL Right 2007 wrist VAGINAL DELIVERY Family History Problem Relation Name Age of Onset Breast cancer Mother Diabetes Father Kidney cancer Brother Social History Tobacco Use Smoking status: Never Smokeless tobacco: Never Vaping Use Vaping status: Never Used Substance Use Topics Alcohol use: Yes Comment: occasionally Drug use: Never OB History Para Term AB Living 1 1 SAB IAB Ectopic Multiple Live Births # Outcome Date GA Lbr Farooq/2nd Weight Sex Type Anes PTL Lv 1 Para Obstetric Comments Has TWINs 1 boy and 1 girl. Allergies Allergen Reactions Amoxicillin GI intolerance Review of Systems Constitutional: Negative. Respiratory: Negative. Cardiovascular: Negative. Gastrointestinal: Negative. Musculoskeletal: Negative. Skin: Negative. Neurological: Negative. Endocrine: Negative. Objective BP 142/84 Wt 252 lb BMI 41.93 kg/m Body mass index is 41.93 kg/m . Physical Exam Genitourinary: Urethral meatus normal. No lesions in the vagina. Genitourinary Comments: Valsalva revealed stage I cystocele Right Labia: No lesions. Left Labia: No lesions. No vaginal discharge. Anterior vaginal prolapse present. Moderate vaginal atrophy present. Right Adnexa: not tender and no mass present. Left Adnexa: not tender and no mass present. No cervical lesion. IUD strings visualized. Uterus is not tender. Uterus is anteverted. Urethral hypermobility present. No urethral stress urinary incontinence with cough stress test present. Bladder is not tender. Rectum: No rectovaginal septum nodularity. Breasts: Right: No mass, nipple discharge, skin change or tenderness. Left: No mass, nipple discharge, skin change or tenderness. HENT: Head: Normocephalic and atraumatic. Mouth/Throat: Mouth: Mucous membranes are moist. Cardiovascular: Rate and Rhythm: Normal rate and regular rhythm. Pulmonary: Effort: Pulmonary effort is normal. Breath sounds: Normal breath sounds. Abdominal: General: Bowel sounds are normal. Palpations: Abdomen is soft. Musculoskeletal: General: No tenderness. Cervical back: Neck supple. Neurological: Mental Status: She is alert and oriented to person, place, and time. Skin: General: Skin is warm and dry. Psychiatric: Mood and Affect: Mood normal. Vitals and nursing note reviewed. Assessment/Plan 1. Encounter for gynecological examination without abnormal finding (Primary) Breast and pelvic exam performed. Discussed findings. Patient to contact the office with any changes to her gynecological condition. 2. Screening for malignant neoplasm of cervix Cervical cytology and co-testing performed. Patient to contact the office for results - THINPREP TIS PAP AND HPV MRNA E6/E7 WITH REFLEX TO HPV 16,18/45 3. Encounter for screening for human papillomavirus (HPV) - THINPREP TIS PAP AND HPV MRNA E6/E7 WITH REFLEX TO HPV 16,18/45 4. Surveillance for control, intrauterine device IUD strings visualized. Patient to contact the office with any concerns or questions 5. Vaginal dryness, menopausal Discussed lubricant/moisturizer use. Estrogen cream treatment also discussed - Estradiol - Estrone - Progesterone - Testosterone, free, total - DHEA-sulfate - Cortisol - Vitamin D 1,25 dihydroxy - Follicle stimulating hormone - Sex hormone binding globulin 6. Low libido Will assess hormone levels in panel, order given to patient. HRT options discussed. - Estradiol - Estrone - Progesterone - Testosterone, free, total - DHEA-sulfate - Cortisol - Vitamin D 1,25 dihydroxy - Follicle stimulating hormone - Sex hormone binding globulin 7. Obesity, morbid (CMS/HCC) 8. Other screening mammogram Mammogram order sent. Patient to schedule appointment - Bilateral screening mammogram with tomosynthesis; Future 9. Screening for colon cancer Cologuard kit requested - Cologuard colon cancer screening 10. Family history of breast cancer in first degree relative 11. Screening for thyroid disorder - TSH W/REFLEX TO FT4 ICD-10-CM 1. Encounter for gynecological examination without abnormal finding Z01.419 2. Screening for malignant neoplasm of cervix Z12.4 THINPREP TIS PAP AND HPV MRNA E6/E7 WITH REFLEX TO HPV 16,18/45 3. Encounter for screening for human papillomavirus (HPV) Z11.51 THINPREP TIS PAP AND HPV MRNA E6/E7 WITH REFLEX TO HPV 16,18/45 4. Surveillance for control, intrauterine device Z30.431 5. Vaginal dryness, menopausal N95.1 Estradiol Estrone Progesterone Testosterone, free, total DHEA-sulfate Cortisol Vitamin D 1,25 dihydroxy Follicle stimulating hormone Sex hormone binding globulin 6. Low libido R68.82 Estradiol Estrone Progesterone Testosterone, free, total DHEA-sulfate Cortisol Vitamin D 1,25 dihydroxy Follicle stimulating hormone Sex hormone binding globulin 7. Obesity, morbid (CMS/HCC) E66.01 8. Other screening mammogram Z12.31 Bilateral screening mammogram with tomosynthesis 9. Screening for colon cancer Z12.11 Cologuard colon cancer screening 10. Family history of breast cancer in first degree relative Z80.3 11. Screening for thyroid disorder Z13.29 TSH W/REFLEX TO FT4 Follow up in about 1 year (around 09/21/2025) for Yearly. Elisabet Larson DO 09/21/2024 6:04 PM documented in this encounter [facility] 06-03-2024 Evaluation note Diagnosis Onset Date Resolution Class 3 severe obesity without serious comorbidity with body mass index (BM acute June 03, 2024 8:28am Class 3 severe obesity without serious comorbidity with body mass index (BM acute July 01 8:32am [facility] Work Phone: [phone]) 405-700502-06-2024 Evaluation note* Encounter Date Diagnosis Assessment Notes Treatment Notes Treatment Clinical Notes Oct, Well adult exam (ICD-10 - Z00.00) We have discussed the necessity of following up with PCP regularly as well as specialists, as needed. Discussed F/U with dentistry and optometry at least yearly. Discussed all preventative measures/ cancer screenings as applicable to this patient. Emphasized the importance of a reduced fat, low carb diet to promote heart health and controlled blood sugars. Reviewed social history and ensured patient is safe within the home today. Pt denies any abuse of alcohol, nicotine, caffeine or recreational drugs. I have ensured patient is of stable mental and physical health today. We have discussed appropriate F/U schedule as well as blood work and vaccinations that apply. All questions answered and patient is sent home pleased, without concerns. Oct, Screening mammogram, encounter for (ICD-10 - Z12.31) Oct, Morbid (severe) obesity due to excess calories (ICD-10 - E66.01) Patient has clearly made a good charisse effort for several months on her own to lose weight with little success. Pt to start Adipex daily. Medication is a stimulant. May cause you to be jittery or constipated. Take in the morning, may also take stool softener daily as needed. Continue to eat a healthy well balanced diet and continue work-out regimine. Pt aware that this is not a cure for obesity but a tool used to help them during their weight loss plateau. Pt aware that they need to continue to work hard at weight loss or the weight will be regained. Side effects discussed and understood. Pt education printed and discussed. Pt notified of prescribing schedule with 30 day dispensing, no refills, for up to 12 weeks, with a 6 month break in-between treatments. Id SOB, CP, mood changes, tachycardia, HTN, headaches, blurred vision occur, go to ER and Follow-up with me immediatel Oct, Body mass index [BMI] 45.0-49.9, adult (ICD-10 - Z68.42) [facility] Other 05-25-2023 Evaluation note* Encounter Date Diagnosis Assessment Notes Treatment Notes Treatment Clinical Notes January, Acute non-recurrent maxillary sinusitis (ICD-10 - J01.00) Sinus infections can be triggered by a secondary infection from a viral URI or even seasonal allergies. Take antibiotic as directed, and complete all doses even if symptoms are no longer present. Encouraged pt to take antibiotic with food to prevent GI upset. Use Flonase, once daily. Takes 5-7 days of consistent use to see full benefits of medication. Encouaged patient to begin using Mucinex OTC as directed to help thin and break up mucus. Patient advised to follow up with PCP if symptoms persist despite treatment, or sooner if symptoms worsen. Patient verbalized understanding and agreement with treatment plan. [employer] Other 05-12-2023 Evaluation note* Encounter Date Diagnosis Assessment Notes Treatment Notes Treatment Clinical Notes January, Acute pain of left knee (ICD-10 - M25.562) [employer] Other 04-14-2023 Evaluation note* Encounter Date Diagnosis Assessment Notes Treatment Notes Treatment Clinical Notes Dec, BMI 45.0-49.9, adult (ICD-10 - Z68.42) Patient has clearly made a good charisse effort for several months on her own to lose weight with little success. Pt to start Adipex daily. Medication is a stimulant. May cause you to be jittery or constipated. Take in the morning, may also take stool softener daily as needed. Continue to eat a healthy well balanced diet and continue work-out regimine. Pt aware that this is not a cure for obesity but a tool used to help them during their weight loss plateau. Pt aware that they need to continue to work hard at weight loss or the weight will be regained. Side effects discussed and understood. Pt education printed and discussed. Pt notified of prescribing schedule with 30 day dispensing, no refills, for up to 12 weeks, with a 6 month break in-between treatments. Id SOB, CP, mood changes, tachycardia, HTN, headaches, blurred vision occur, go to ER and Follow-up with me immediately. Dec, Morbid (severe) obesity due to excess calories (ICD-10 - E66.01) [employer] Other 03-13-2023 Evaluation note* Encounter Date Diagnosis Assessment Notes Treatment Notes Treatment Clinical Notes Nov, Acute pain of left knee (ICD-10 - M25.562) Pt has questions about the best knee brace or some other conservative treatment measures. Will start w an Xray. Already taking NSAIDs prn. Nov, Morbid (severe) obesity due to excess calories (ICD-10 - E66.01) Denies adverse effects. Will continue rx. Nov, Body mass index [BMI] 45.0-49.9, adult (ICD-10 - Z68.42) [employer] Other 02-06-2023 Evaluation note* Encounter Date Diagnosis Assessment Notes Treatment Notes Treatment Clinical Notes Oct, Morbid (severe) obesity due to excess calories (ICD-10 - E66.01) morbid obese - discussed adipex rules. This will be her 1st month this time. Patient has clearly made a good charisse effort for several months on her own to lose weight with little success. Pt to start Adipex daily. Medication is a stimulant. May cause you to be jittery or constipated. Take in the morning, may also take stool softener daily as needed. Continue to eat a healthy well balanced diet and continue work-out regimine. Pt aware that this is not a cure for obesity but a tool used to help them during their weight loss plateau. Pt aware that they need to continue to work hard at weight loss or the weight will be regained. Side effects discussed and understood. Pt education printed and discussed. Pt notified of prescribing schedule with 30 day dispensing, no refills, for up to 12 weeks, with a 6 month break in-between treatments. Id SOB, CP, mood changes, tachycardia, HTN, headaches, blurred vision occur, go to ER and Follow-up with me immediatel Oct, Body mass index [BMI] 45.0-49.9, adult (ICD-10 - Z68.42) [employer] Other 05-09-2022 Evaluation note* Encounter Date Diagnosis Assessment Notes Treatment Notes Treatment Clinical Notes January, Sore throat (ICD-10 - J02.9) Symptoms appear viral today. Bacteria infections take several days to weeks of symptoms to develop. Use saline nasal spray before prescription one and you have better results. Recommend OTC medications such as Mucinex DM, Delsym, Cepocal Lozenges Continue tylenol/ibuprofen for general discomfort. Encourage fluids. Symptoms should improve within the next 10-14 days. If no improvement of symptoms contact primary care provider Culture of throat taken in office. Patient asked for bloodwork. Recommended patient to follow up with primary care provider for bloodwork and let her know that we will send her information from today's visit over to her today. January, Fatigue (ICD-10 - R53.83) [employer] Other 01-20-2022 Evaluation note* Encounter Date Diagnosis Assessment Notes Treatment Notes Treatment Clinical Notes Sep, Contact with and (suspected) exposure to other viral communicable diseases (ICD-10 - Z20.828) covid test pos, see above. Sep, COVID (ICD-10 - U07.1) Covid test pos in office today. Supportive care as directed. Push fluids and rest. Pt is to take otc antipyretic prn for fever and aches. Pt is to take otc cough suppressant prn for cough. They are to follow the recommended stay at home quarantine rules for 10 days from onset of sx and they are to avoid contact with others in the home. Pt is to be re-evaluated after tx if sx worsen or don't improve by pcp or UC. Discussed at length sx of resp distress that would indicate need for immediate ER tx. Sx include but not limited to worsening SOB, wheeze, dyspnea, difficulty swallowing or breathing, and chest pain. Go straight to ER for any of these sx. Pt is to call the office with any questions or concerns regarding dx and tx. Information sheet with test results, general info on covid virus, and info sheet about treatment at home and quarantine guidelines was provided to pt in office today. Pt was referred to PCP for chronic management. Pt understood and agreed to tx plan. Sep, Other Additional time spent conducting pre-visit phone call, screening for symptoms, instructions on social distancing, application and removal of PPE, and cleaning of examination room, equipment and supplies was preformed. Patient education given for testing methodology and results. Patient care instructions given in writting by [facility] Care At Home document. [employer] Other Evaluation + Plan note No data available for this section [facility] noteNo InformationNortSt. [facility] [employer] Other Evaluation note* Diagnosis Onset Date Resolution Status [id number] acute History of candidiasis of vagina noneactive Contact with and (suspected) exposure to covid-19 noneactive Sinusitis noneactive [facility] Work Phone: Evaluation note* Diagnosis Onset Date Resolution Status [id number] acute History of candidiasis of vagina noneactive Contact with and (suspected) exposure to covid-19 noneactive Sinusitis noneactive [id number] [facility] Work Phone: Evaluation note* Diagnosis Onset Date Resolution Status History of candidiasis of vagina noneactive Contact with and (suspected) exposure to covid-19 noneactive Sinusitis noneactive [id number] acute [id number] acute [id number] [facility] Work Phone: evaluation note* Diagnosis Onset Date Resolution Status [id number] acute [id number] [facility] Work Phone: Evaluation note* Diagnosis Onset Date Resolution Status [id number] acute [id number] [facility] Work Phone: evaluation note* Diagnosis Onset Date Resolution Status [id number] acute [id number] [facility] Work Phone: evaluation note* Diagnosis Encounter for gynecological examination without abnormal finding- Primary Screening for malignant neoplasm of cervix Screening for malignant neoplasm of the cervix Encounter for screening for human papillomavirus (HPV) Surveillance for control, intrauterine device Surveillance of previously prescribed intrauterine contraceptive device Vaginal dryness, menopausal Low libido Obesity, morbid (CMS/HCC) Morbid obesity Other screening mammogram Screening for colon cancer Special screening for malignant neoplasms, colon Family history of breast cancer in first degree relative Family history of malignant neoplasm of breast Screening for thyroid disorder documented in this encounter [facility] Narrative - Reported* Type Description Date Surgical History [facility] [employer] Other History general Narrative - Reported* Type Description Date Medical History Taste absent Medical History UTI symptoms Medical History Nail fungus Medical History Pharyngitis Medical History Fatigue Surgical History 2001 Surgical History GANGLION CYST REMOVAL 2007 Hospitalization History SEE SURGICAL HX [facility] [employer] Other Hospital Discharge instructions No data available for this section [facility] No data available for this section [facility] Summary Purpose Family History No Family History Records Found Relationship Condition Age at Onset Recorded Date/T felicia father Unknown Diabetes mellitus Unknown Not Specified History of stroke Unknown Relationship Condition Age at Onset Recorded Date/T felicia father Unknown Diabetes mellitus Unknown mother History of stroke Unknown Advance Directives No Advanced Directives Records Found Advance Directive Response Recorded Date/ Time Advance Directives No December 09, 7:24am Advance Directive Response Recorded Date/ Time Advance Directives No December 09 6:24am Reason for Referral Reason *FU 02/02 [facility] - [facility] - xray and November note. Diagnosis 1 Acute pain of left k nee (M25.562) Referral Organization [facility] Abhijit herring Referring Provider First Name Genie Referring Provider Last Name Jessica Referring Provider Specialty Family [facility] Referred Organization [facility] Referred Provider Po Craig Jr. Referred Address ,[place], [place],[address] Referred Provider Specialty Orthopedic S urgery Referral Priority Routine General Notes Zuly López 03:56:06 PM >received today, attachments made, referral faxed Clinical Notes F: [id number] Chief Complaint and Reason for Visit Chief Complaint 1 MONTH FOLLOW UP Sinus infection Reason for Visit [id number] History of candidiasis of vagina Contact with and (suspected) exposure to covid-19 Sinusitis Chief Complaint 1 MONTH FOLLOW UP Sinus infection 1 month follow up Reason for Visit [id number] History of candidiasis of vagina Contact with and (suspected) exposure to covid-19 Sinusitis Chief Complaint 1 MONTH FOLLOW UP Sinus infection 1 month follow up 1 month follow up Reason for Visit [id number] History of candidiasis of vagina Contact with and (suspected) exposure to covid-19 Sinusitis [id number] Chief Complaint Sinus infection 1 month follow up 1 month follow up 1 month follow up Reason for Visit History of candidias is of vagina Contact with and (suspected) exposure to covid-19 Sinusitis [id number] Chief Complaint 1 month follow up 1 month follow up 1 month follow up Reason for Visit [id number] Chief Complaint 1 month follow up 1 month follow up 1 month f/u Reason for Visit [id number] Chief Complaint 1 month follow up 1 month f/u 1 month f/u Reason for Visit [id number] Chief Complaint 1 month f/u 1 month f/u 1 month f/u, adipex Reason for Visit [id number] Chief Complaint Admit Date 1 month f/u June 03, 2024 8:28am 1 month f/u, adipex July 01, 2024 8 :32am 1 month f/u August 02, 2024 8:29am Reason for Visit Admit Date Class 3 severe obesity witho ut serious comorbidity with body mass index (BM June 03, 2024 8:28am Class 3 severe obesity witho ut serious comorbidity with body mass index (BM July 01, 2024 8:32am Additional Source Comments INFORMATION SOURCE (unrecogn ized section and content) DATE CREATED AUTHOR 01/23/2022 [facility] DATE CREATED AUTHOR AUTHOR'S ORGANIZ ATION 01/25/[address] [facility] DATE CREATED AUTHOR AUTHOR'S ORGANIZ ATION 09/27/2024 [facility] EP[facility] DATE CREATED AUTHOR AUTHOR'S ORGANIZ ATION 09/27/2024 [facility] DATE CREATED AUTHOR AUTHOR'S ORGANIZ ATION 09/28/2024 [facility] DATE CREATED AUTHOR AUTHOR'S ORGANIZ ATION 09/30/2024 [facility] REASON FOR VISIT (unrecogniz ed section and content) Reason Comments Gynecologic Exam New patient here for a yearly. Patient reports vaginal dryness, low libido, hair thinning, and insomnia. Completed mammogram on 11/13/23, future order sent to [facility]. Patient states that she has the Paraguard IUD inserted in 2013, Would like to discuss IUD removal. Not sure if she is menopause. Last pap unknown. Never had colonoscopy. Would like the cologuard kit. Reports no periods since IUD was inserted in 2013, denies any cramping. Admits to tolerable hot flushes Patient Care team informatio n (unrecognized section and content) Team Status: Active Member Role Status Dates Genie Ma MD Primary Care Provider Active Team Status: Inactive Member Role Status Dates Genie Ma MD Primary Care Provide r, Attending Provider Active Start: November 13, 2023 End: November 13, 2023 Team Status: Inactive Member Role Status Dates Genie Ma MD Primary Care Provider Active Start: November 27, 2023 End: November 27, 2023 JOSELIN Herman Attending Provider Active S tart: November 27, 2023 End: November 27, 2023 Team Status: Inactive Member Role Status Dates Genie aM MD Primary Care Provide r, Attending Provider Active Start: December 18, 2023 End: December 18, 2023 Team Status: Active Member Role Status Dates Genie Ma MD Primary Care Provide r, Attending Provider Active Start: December 21, 2023 Team Status: Inactive Member Role Status Dates Genie Ma MD Primary Care Provide r, Attending Provider Active Start: January 21, 2024 End: January 21, 2024 Team Status: Inactive Member Role Status Dates Genie Ma MD Primary Care Provide r, Attending Provider Active Start: February 22, 2024 End: February 22, 2024 Team Status: Inactive Member Role Status Dates Genie Ma MD Primary Care Provide r, Attending Provider Active Start: March 24, 2024 End: March 24, 2024 Team Status: Inactive Member Role Status Jazlyn Ma MD Primary Care Provide r, Attending Provider Active Start: May 03, 2024 End: May 03, 2024 Team Status: Inactive Member Role Status Dates Genie Ma MD Primary Care Provide r, Attending Provider Active Start: June 03, 2024 End: June 03, 2024 Team Status: Inactive Member Role Status Dates Genie Ma MD Primary Care Provide r, Attending Provider Active Start: July 01, 2024 End: July 01, 2024 Team Status: Inactive Member Role Status Jazlyn Ma MD Primary Care Provide r, Attending Provider Active Start: August 02, 2024 End: August 02, 2024 Discovery Manager Relationship Specialty Start Date End Date Genie Ma MD [address] [place] [id number] PCP - General Family Medicine 02/19/23 Discovery Manager Relationship Specialty Start Date End Date Genie Ma MD [address] [place] [address] PCP - General Family Medicine 02/19/23 Goals (unrecognized section and content) Goals may be documented in a n alternate section FOR RECORDS PERTAINING TO PATIENTS WHO ARE OR HAVE BEEN ENROLLED IN A CHEMICAL DEPENDENCY/SUBSTANCEABUSE PROGRAM, SOME INFORMATION MAY BE OMITTED. This clinical summary was aggregated from multiple sources. Caution should be exercised in using it in the provision of clinical care. This summary normalizes information from multiple sources, and as a consequence, information in this document may materially change the coding, format and clinical context of patient data. In addition, data may be omitted in some cases. CLINICAL DECISIONS SHOULD BE BASED ON THE PRIMARY CLINICAL RECORDS. [facility] [employer] [facility]. provides no warranty or guarantee of the accuracy or completeness of information in this document.
== END 2024-12-23 09:57 | disposition home or self-care (01) ==
LOC: MAMMO 09:56
PROVIDERS: PCP Family Medicine; Visit Provider Obstetrics & Gynecology
DX: Z12.31 Encounter for screening mammogram for malignant neoplasm of breast (principal)
CPT/HCPCS: 77063; 77067